=== PATIENT | male | born 1985 | race Caucasian/White ===

== ENCOUNTER 2023-07-06 22:20 | Inpatient (IN) | payer BC ==
[~2023-07-06] VITALS: Ht 177.8 cm; Wt 97.1 kg
[2023-07-06 21:45] VITALS: BP 114/66; PULSE 73; RESP 17; TEMP 98.9
[2023-07-06 22:34] VITALS: O2SAT 99
[2023-07-06] MEDS ORDERED: SODIUM CHLORIDE 0.9% 1,000 ML IV ONE (23:30)
[2023-07-06] MEDS ORDERED: MAGNESIUM 2 G PREMIX 50 ML IV ONE (23:30)
[2023-07-07] LABS: BASOPHILS % 0.4 % (0.0-2.0); HEMATOCRIT. 40.9 % (42.0-52.0); HEMOGLOBIN. 14.2 g/dL (14.0-18.0); MEAN CORPUSCULAR HEMOGLOBIN 30.2 pg (28.0-32.0); MEAN CORPUSCULAR HGB CONC 34.8 g/dL (31.0-37.0); MEAN CORPUSCULAR VOLUME 86.7 fL (80.0-94.0); MEAN PLATELET VOLUME 7.6 fl (7.4-10.4); NEUTROPHILS % 81.6 % (40.0-76.0); PLATELET 169 x1000/uL (130-400); RED BLOOD CELL COUNT 4.72 mill/uL (4.7-6.1); RED CELL DISTRIBUTION WIDTH 14.8 % (11.6-14.6); WHITE BLOOD COUNT 16.9 x1000/uL (4.5-11.0)
[2023-07-07] MEDS ORDERED: ONDANSETRON HCL 4MG/2ML INJ IV ONE
[2023-07-07] MEDS ORDERED: LORAZEPAM 1MG TABLET PO NR (01:00)
[2023-07-07] MEDS ORDERED: IBUPROFEN 600MG TABLET PO NR (01:00)
[2023-07-07] MEDS ORDERED: SODIUM CHLORIDE 0.9% 1,000 ML IV ONE (02:15)
[2023-07-07 06:00] LABS: CHLORIDE 92 mEq/L (98-107); INDEX HEMOLYSI 1 (1-3); INDEX ICTERIC 2 (1-4); INDEX LIPEMIC 1 (1-3); POTASSIUM 3.3 mEq/L (3.5-5.1); SODIUM 132 mEq/L (136-145)
[2023-07-07 06:06] LABS: ALANINE AMINOTRANSFERASE 82 IU/L (13-61); ASPARTATE AMINOTRANSFERASE 110 IU/L (15-37); BILIRUBIN TOTAL 2.4 mg/dL (0.1-1.0); CALCIUM 7.3 mg/dL (8.5-10.1); CARBON DIOXIDE 31 mEq/L (21-32); CREATININE 2.3 mg/dL (0.6-1.3); GLUCOSE 215 mg/dL (70-105); PROTEIN TOTAL 7.7 g/dL (6.0-8.3); UREA NITROGEN BLOOD 36 mg/dL (7-21)
[2023-07-07] MEDS ORDERED: DOCUSATE SODIUM 100MG CAPSULE PO PRN (07:45)
[2023-07-07] MEDS: CHLORDIAZEPOXIDE 25MG CAPSULE PO SCH ×3 (07:45→21:50)
[2023-07-07] MEDS ORDERED: ACETAMINOPHEN 325MG TABLET PO PRN (07:45)
[2023-07-07] MEDS ORDERED: KCL 20MEQ/100ML PREMIX 100 ML IV NR (08:00)
[2023-07-07] MEDS ORDERED: CEFTRIAXONE 1GM PREMIX 50 ML IV NR (08:00)
[2023-07-07] MEDS ORDERED: MVI, ADULT NO.1 10 ML, FOLIC ACID 1 MG, THIAMINE HCL 100 MG in SODIUM CHLORIDE 0.9% 1,0... IV ONE ×4 (09:00)
[2023-07-07] MEDS: ENOXAPARIN 40MG/0.4ML SYR SUBCUT SCH (09:00)
[2023-07-07] MEDS: HYDROCODONE/ACETAMINOPHEN 5/325MG TABLET PO PRN (11:52)
[2023-07-07 13:59] LABS: INDEX HEMOLYSI 2 (1-3)
[2023-07-07 14:50] LABS: CREATINE KINASE 123 IU/L (39-308)
[2023-07-07] MEDS ORDERED: NALOXONE HCL 0.4MG/ML VIAL IV PRN (17:15)
[2023-07-07] MEDS ORDERED: DEXTROSE 50% WATER 50ML SYRINGE IV PRN (17:15)
[2023-07-07] MEDS ORDERED: THIAMINE HCL 100MG TABLET PO SCH (17:15)
[2023-07-07] MEDS ORDERED: LORAZEPAM 0.5MG TABLET PO PRN (17:15)
[2023-07-07 17:30] VITALS: BP 106/52; PULSE 91; RESP 20; TEMP 98.3
[2023-07-07] MEDS: FOLIC ACID 1MG TABLET PO SCH (18:00)
[2023-07-07] MEDS: INSULIN LISPRO 100 UNITS/ML SUBCUT SCH ×2 (18:00→21:00)
[2023-07-07] MEDS: BLOOD SUGAR DIAGNOSTIC STRIP TEST SCH ×2 (18:10→21:49)
[2023-07-07] MEDS: SODIUM CHLORIDE 0.9% 1,000 ML IV SCH (18:30)
[2023-07-07] MEDS ORDERED: LORAZEPAM 2MG/ML CPJ IV PRN (19:00)
[2023-07-07 20:00] VITALS: BP 114/66; PULSE 73; RESP 17; TEMP 98.9
[2023-07-07 20:58] LABS: HEPATITIS B SURFACE ANTIGEN NEGATIVE
[2023-07-07 23:54] LABS: CLARITY URINE CLOUDY (CLEAR); COLOR URINE ORANGE (YELLOW); GLUCOSE URINE NEGATIVE (NEGATIVE); KETONES URINE NEGATIVE (NEGATIVE); LEUKOCYTE ESTERASE URINE 2+ (NEGATIVE); NITRITE URINE NEGATIVE (NEGATIVE); OCCULT BLOOD URINE NEGATIVE (NEGATIVE); PH URINE 5.5 (4.5-8.0); PROTEIN URINE 1+ (NEGATIVE); SPECIFIC GRAVITY URINE 1.015 (1.005-1.030)
[2023-07-08] VITALS (7 sets, daily range): BP systolic 106–140; BP diastolic 66–89; PULSE 79–96; RESP 17–20; TEMP 97–100.3
[2023-07-08 00:15] LABS: RBC URINE NONE SEEN /hpf (0-2); WBC URINE 15-25 /hpf (0-2)
[2023-07-08 00:16] LABS: BACTERIA URINE TRACE; SQUAMOUS EPITHELIAL CELL URINE 1+ /lpf (RARE/1+)
[2023-07-08] MEDS ORDERED: FERR325T6 MT (00:57)
[2023-07-08] MEDS ORDERED: LOSA50TA41 MT (00:57)
[2023-07-08] MEDS ORDERED: BUSP10TA3 PO (00:57)
[2023-07-08] MEDS ORDERED: GABA-532 PO (00:57)
[2023-07-08] MEDS ORDERED: ESCI20TA37 MT (00:57)
[2023-07-08] MEDS ORDERED: KEPP250 MT (00:57)
[2023-07-08] MEDS ORDERED: FURO40TA5 MT (00:57)
[2023-07-08] MEDS ORDERED: THIA100T88 MT (00:57)
[2023-07-08] MEDS ORDERED: CLON0.1T PO (00:57)
[2023-07-08] MEDS ORDERED: [UNRECOGNIZED DRUG - CODE] MT (00:57)
[2023-07-08] MEDS ORDERED: HYDR50TA55 MT (00:57)
[2023-07-08] MEDS ORDERED: PRAZ2CAP2 MT (00:57)
[2023-07-08] MEDS ORDERED: TIZA-204 PO (00:57)
[2023-07-08] MEDS ORDERED: *PATIENT'S OWN MEDICATION STORAGE XX SCH (01:00)
[2023-07-08 01:27] LABS: *BARBITURATES SCREEN URINE NEGATIVE (NEGATIVE); *BENZODIAZEPINES SCREEN URINE NEGATIVE (NEGATIVE); *COCAINE SCREEN URINE NEGATIVE (NEGATIVE); CANNABINOID URINE SCREEN NEGATIVE (NEGATIVE); ECSTASY MDMA SCREEN URINE NEGATIVE (NEGATIVE); METHADONE URINE SCREEN NEGATIVE (NEGATIVE); PHENCYCLIDINE URINE SCREEN NEGATIVE (NEGATIVE)
[2023-07-08 01:29] LABS: *AMPHETAMINES SCREEN URINE NEGATIVE (NEGATIVE); OPIATES URINE SCREEN PRESUMTIVE POSITIVE (NEGATIVE)
[2023-07-08] MEDS ORDERED: HALOPERIDOL LACTATE 5MG/ML VIAL IM PRN (02:00)
[2023-07-08] MEDS: LORAZEPAM 2MG/ML CPJ IV PRN ×3 (02:06→21:52)
[2023-07-08] MEDS: SODIUM CHLORIDE 0.9% 1,000 ML IV SCH ×3 (04:37→23:47)
[2023-07-08 06:34] LABS: BASOPHILS % 0.1 % (0.0-2.0); EOSINOPHILS % 0.5 % (0.0-5.0); HEMATOCRIT. 32.3 % (42.0-52.0); HEMOGLOBIN. 11.3 g/dL (14.0-18.0); LYMPHOCYTES % 20.5 % (20.0-50.0); MEAN CORPUSCULAR HEMOGLOBIN 30.8 pg (28.0-32.0); MEAN CORPUSCULAR HGB CONC 35.1 g/dL (31.0-37.0); MEAN CORPUSCULAR VOLUME 87.6 fL (80.0-94.0); MEAN PLATELET VOLUME 8.1 fl (7.4-10.4); NEUTROPHILS % 72.9 % (40.0-76.0); PLATELET 70 x1000/uL (130-400); RED BLOOD CELL COUNT 3.68 mill/uL (4.7-6.1); RED CELL DISTRIBUTION WIDTH 14.1 % (11.6-14.6)
[2023-07-08] MEDS: BLOOD SUGAR DIAGNOSTIC STRIP TEST SCH ×4 (06:52→20:02)
[2023-07-08] MEDS: INSULIN LISPRO 100 UNITS/ML SUBCUT SCH ×4 (06:53→20:02)
[2023-07-08] MEDS: OMEPRAZOLE 20MG CAPSULE EXTENDED RELEASE PO SCH ×2 (06:58→08:16)
[2023-07-08] MEDS: CHLORDIAZEPOXIDE 25MG CAPSULE PO SCH ×3 (06:58→21:52)
[2023-07-08] MEDS: FOLIC ACID 1MG TABLET PO SCH (08:16)
[2023-07-08] MEDS: CEFTRIAXONE 1,000 MG in DEXTROSE 5% WATER 50 ML IV SCH (08:16)
[2023-07-08] MEDS: THIAMINE HCL 100MG TABLET PO SCH (08:16)
[2023-07-08] MEDS: ENOXAPARIN 40MG/0.4ML SYR SUBCUT SCH (08:17)
[2023-07-08] MEDS: MORPHINE SULFATE 2 MG/ML CPJ (NOT FOR IM USE) IV PRN ×3 (08:19→23:21)
[2023-07-08 12:51] LABS: INR 1.3; PROTHROMBIN TIME 13.4 sec (9.6-11.0)
[2023-07-08 13:16] LABS: PHOSPHORUS 2.8 mg/dL (2.5-4.9)
[2023-07-08] MEDS: HYDROCODONE/ACETAMINOPHEN 5/325MG TABLET PO PRN (14:25)
[2023-07-08 17:21] LABS: POTASSIUM 2.8 mEq/L (3.5-5.1)
[2023-07-08 17:22] LABS: ALBUMIN 3.6 g/dL (3.4-5.0); BILIRUBIN TOTAL 1.9 mg/dL (0.1-1.0); CALCIUM 7.7 mg/dL (8.5-10.1); PHOSPHORUS 2.8 mg/dL (2.5-4.9); PROTEIN TOTAL 7.1 g/dL (6.0-8.3)
[2023-07-08 17:23] LABS: BILIRUBIN DIRECT 0.7 mg/dL (0.0-0.2)
[2023-07-08 17:34] LABS: HEMATOCRIT 32.3 % (42.0-52.0); HEMOGLOBIN 11.1 g/dL (14.0-18.0); MEAN CORPUSCULAR HGB CONC 34.3 g/dL (31.0-37.0); MEAN CORPUSCULAR VOLUME 87.6 fL (80.0-94.0); PLATELET 67 x1000/uL (130-400); RED BLOOD CELL COUNT 3.69 mill/uL (4.7-6.1); RED CELL DISTRIBUTION WIDTH 13.9 % (11.6-14.6); WHITE BLOOD COUNT 6.1 x1000/uL (4.5-11.0)
[2023-07-08] MEDS ORDERED: POTASSIUM CHLORIDE INJ 40 MEQ in DEXT 5% WATER 250 ML IV NR (19:00)
[2023-07-09] VITALS: BP 120/77; PULSE 82; RESP 18; TEMP 97.8
[2023-07-09] MEDS: LORAZEPAM 2MG/ML CPJ IV PRN ×2 (01:45→05:05)
[2023-07-09] MEDS: HYDROCODONE/ACETAMINOPHEN 5/325MG TABLET PO PRN ×2 (01:46→09:02)
[2023-07-09 04:00] VITALS: BP 139/80; PULSE 85; RESP 20; TEMP 98.6
[2023-07-09 04:57] LABS: BASOPHILS % 0.1 % (0.0-2.0); HEMATOCRIT. 30.8 % (42.0-52.0); HEMOGLOBIN. 10.7 g/dL (14.0-18.0); LYMPHOCYTES % 20.9 % (20.0-50.0); MEAN CORPUSCULAR HEMOGLOBIN 30.2 pg (28.0-32.0); MEAN CORPUSCULAR HGB CONC 34.8 g/dL (31.0-37.0); MEAN CORPUSCULAR VOLUME 86.8 fL (80.0-94.0); MEAN PLATELET VOLUME 8.2 fl (7.4-10.4); MONOCYTES % 6.9 % (2.0-8.0); NEUTROPHILS % 71.1 % (40.0-76.0); PLATELET 64 x1000/uL (130-400); RED BLOOD CELL COUNT 3.55 mill/uL (4.7-6.1)
[2023-07-09 05:13] LABS: INDEX HEMOLYSI 1 (1-3)
[2023-07-09 05:14] LABS: POTASSIUM 3.1 mEq/L (3.5-5.1)
[2023-07-09 05:25] LABS: ALBUMIN 3.3 g/dL (3.4-5.0); BILIRUBIN DIRECT 0.5 mg/dL (0.0-0.2); BILIRUBIN TOTAL 1.1 mg/dL (0.1-1.0); CALCIUM 7.6 mg/dL (8.5-10.1); CREATININE 1.4 mg/dL (0.6-1.3); PROTEIN TOTAL 6.8 g/dL (6.0-8.3)
[2023-07-09 06:04] VITALS: BP 139/80; PULSE 85; RESP 20
[2023-07-09] MEDS: MORPHINE SULFATE 2 MG/ML CPJ (NOT FOR IM USE) IV PRN (06:04)
[2023-07-09] MEDS: CHLORDIAZEPOXIDE 25MG CAPSULE PO SCH (06:04)
[2023-07-09] MEDS: BLOOD SUGAR DIAGNOSTIC STRIP TEST SCH (06:28)
[2023-07-09] MEDS: INSULIN LISPRO 100 UNITS/ML SUBCUT SCH (06:35)
[2023-07-09] MEDS ORDERED: POTASSIUM CHLORIDE 20MEQ TABLET SR PO NR (07:30)
[2023-07-09] MEDS: THIAMINE HCL 100MG TABLET PO SCH (09:02)
[2023-07-09] MEDS: FOLIC ACID 1MG TABLET PO SCH (09:02)
[2023-07-09] MEDS: CEFTRIAXONE 1,000 MG in DEXTROSE 5% WATER 50 ML IV SCH (09:05)
[2023-07-09 09:11] LABS: HIV SCREEN 4G Non Reactive (Non Reactive)
[2023-07-09 09:37] LABS: AMMONIA 109 uMol/L (<32)
[2023-07-09] MEDS ORDERED: L25 MT (10:27)
[2023-07-09 13:06] LABS: ANTI-NUCLEAR ANTIBODIES DIRECT Negative (Negative)
[2023-07-09 14:09] LABS: COMPLEMENT C3 111 mg/dL (82-167); COMPLEMENT C4 24 mg/dL (12-38)
[2023-07-09 21:22] LABS: HEPATITIS C VIR.AB 0.12 INDEXVAL (0.00-0.80)
[2023-07-09 21:23] LABS: HEPATITIS B CORE AB IGM NEGATIVE
[2023-07-09 22:07] LABS: HEPATITIS A AB IGM NEGATIVE (NEGATIVE)
== END 2023-07-09 11:29 | disposition left against medical advice (07) | DRG 439 ==
LOC: ER 22:42 → MICUSO 07-07 02:55 → 8WST 07-07 16:54
PROVIDERS: ADMIT Family Medicine Adult Medicine; ATTEND Family Medicine Adult Medicine
DX: K85.20 Alcohol induced acute pancreatitis without necrosis or infection (principal); E87.1 Hypo-osmolality and hyponatremia; N17.9 Acute kidney failure, unspecified; N39.0 Urinary tract infection, site not specified; K70.30 Alcoholic cirrhosis of liver without ascites; K44.9 Diaphragmatic hernia without obstruction or gangrene; F41.1 Generalized anxiety disorder; E87.6 Hypokalemia; N18.9 Chronic kidney disease, unspecified; Z53.29 Procedure and treatment not carried out because of patient's decision for other reasons; I12.9 Hypertensive chronic kidney disease with stage 1 through stage 4 chronic kidney disease, or unspecified chronic kidney disease; D64.9 Anemia, unspecified; D69.6 Thrombocytopenia, unspecified; E11.22 Type 2 diabetes mellitus with diabetic chronic kidney disease; E11.65 Type 2 diabetes mellitus with hyperglycemia; E78.1 Pure hyperglyceridemia; E83.51 Hypocalcemia; I25.10 Atherosclerotic heart disease of native coronary artery without angina pectoris; K70.10 Alcoholic hepatitis without ascites; K86.1 Other chronic pancreatitis; F32.A Depression, unspecified; F41.9 Anxiety disorder, unspecified; K21.9 Gastro-esophageal reflux disease without esophagitis; F17.210 Nicotine dependence, cigarettes, uncomplicated
CPT/HCPCS: 36415; 71045; 74176; 76705; 76770; 80048; 80053; 80061; 80076; 80305; 81003; 82140; 82248; 82330; 82378; 82550; 82962; 83036; 83735; 84100; 84145; 85025; 85027; 85044; 86038; 86160; 86301; 86705; 86709; 86803; 87077; 87340; 87389; 93970; 99285; J0696; J1630; J1650; J1815; J2060; J2270; J2405; J3411; J3475; J3480; J3490; J7030; J7060

== ENCOUNTER 2023-12-10 18:35 | Inpatient (IN) | payer BC ==
[~2023-12-10] VITALS: Ht 177.8 cm; Wt 99.8 kg
[~2023-12-10 18:35] MED LIST: BUSP10TA3 PO; CLON0.1T PO; ESCI20TA37 MT; FERR325T6 MT; FURO40TA5 MT; GABA-532 PO; HYDR50TA55 MT; KEPP250 MT; L25 MT; LOSA50TA41 MT; PRAZ2CAP2 MT; THIA100T88 MT; TIZA-204 PO; [UNRECOGNIZED DRUG - CODE] MT
[2023-12-10 19:44] LABS: BASOPHILS % 0.1 % (0.0-2.0); HEMATOCRIT. 34.1 % (42.0-52.0); HEMOGLOBIN. 11.8 g/dL (14.0-18.0); LYMPHOCYTES % 4.4 % (20.0-50.0); MEAN CORPUSCULAR HEMOGLOBIN 30.2 pg (28.0-32.0); MEAN CORPUSCULAR HGB CONC 34.7 g/dL (31.0-37.0); MEAN CORPUSCULAR VOLUME 86.9 fL (80.0-94.0); MEAN PLATELET VOLUME 6.8 fl (7.4-10.4); MONOCYTES % 5.8 % (2.0-8.0); NEUTROPHILS % 89.7 % (40.0-76.0); PLATELET 189 x1000/uL (130-400); RED BLOOD CELL COUNT 3.92 mill/uL (4.7-6.1); RED CELL DISTRIBUTION WIDTH 14.5 % (11.6-14.6); WHITE BLOOD COUNT 16.4 x1000/uL (4.5-11.0)
[2023-12-10 19:52] LABS: DIFFERENTIAL COMMENT 1
[2023-12-10 20:04] LABS: ALANINE AMINOTRANSFERASE 23 IU/L (10-49); ALBUMIN 3.8 g/dL (3.2-4.8); ASPARTATE AMINOTRANSFERASE 45 IU/L (<34); BILIRUBIN TOTAL 0.5 mg/dL (0.1-1.0); CALCIUM 7.7 mg/dL (8.7-10.4); CARBON DIOXIDE 14 mEq/L (21-32); CHLORIDE 85 mEq/L (98-107); CREATININE 3.6 mg/dL (0.6-1.3); ETHANOL BLOOD 373 mg/dL (<10); GLUCOSE 127 mg/dL (70-105); POTASSIUM 4.4 mEq/L (3.5-5.1); PROTEIN TOTAL 8.2 g/dL (6.0-8.3); SODIUM 122 mEq/L (136-145); UREA NITROGEN BLOOD 43 mg/dL (9-23)
[2023-12-10] MEDS: CHLORDIAZEPOXIDE 25MG CAPSULE PO ONE (20:15)
[2023-12-10] MEDS: FOLIC ACID 1 MG, THIAMINE HCL 100 MG, MVI, ADULT NO.1 10 ML in DEXTROSE 5% WATER 1,000 ML IV ONE (20:15)
[2023-12-10 20:51] LABS: CLARITY URINE TURBID (CLEAR); COLOR URINE DARK YELLOW (YELLOW); GLUCOSE URINE NEGATIVE (NEGATIVE); KETONES URINE NEGATIVE (NEGATIVE); LEUKOCYTE ESTERASE URINE TRACE (NEGATIVE); NITRITE URINE NEGATIVE (NEGATIVE); OCCULT BLOOD URINE 2+ (NEGATIVE); PH URINE 5.5 (4.5-8.0); PROTEIN URINE 4+ (NEGATIVE); SPECIFIC GRAVITY URINE 1.039 (1.005-1.030); UROBILINOGEN URINE 0.2 E.U./dL (0.2-1.0)
[2023-12-10 21:31] LABS: *AMPHETAMINES SCREEN URINE NEGATIVE (NEGATIVE); *BARBITURATES SCREEN URINE NEGATIVE (NEGATIVE); *BENZODIAZEPINES SCREEN URINE NEGATIVE (NEGATIVE); *COCAINE SCREEN URINE NEGATIVE (NEGATIVE); CANNABINOID URINE SCREEN NEGATIVE (NEGATIVE); ECSTASY MDMA SCREEN URINE NEGATIVE (NEGATIVE); METHADONE URINE SCREEN Neg (NEGATIVE); OPIATES URINE SCREEN NEGATIVE (NEGATIVE); PHENCYCLIDINE URINE SCREEN NEGATIVE (NEGATIVE)
[2023-12-10 21:45] LABS: RBC URINE 15-25 /hpf (0-2); SQUAMOUS EPITHELIAL CELL URINE 2+ /lpf (RARE/1+)
[2023-12-10 21:46] LABS: AMORPHOUS SEDIMENT URINE 2+ /lpf; BACTERIA URINE 2+; FINE GRANULAR CASTS URINE 0-5 /lpf; HYALINE CASTS URINE 0-5 /lpf
[2023-12-10] MEDS: SODIUM CHLORIDE 0.9% 1,000 ML IV ONE (21:51)
[2023-12-10] MEDS: ONDANSETRON HCL 4MG/2ML INJ IV ONE (22:42)
[2023-12-10] MEDS: CEFTRIAXONE 1GM PREMIX 50 ML IV ONE (22:42)
[2023-12-10 23:00] VITALS: BP 164/108; PULSE 101; RESP 19; TEMP 97.5
[2023-12-10] MEDS: BUSPIRONE HCL 10MG TABLET PO SCH (23:59)
[2023-12-11] MEDS: FOLIC ACID 1MG TABLET PO SCH (00:07)
[2023-12-11] MEDS: CLONIDINE 0.1MG TABLET PO PRN (00:07)
[2023-12-11] MEDS: HYDROXYZINE 25MG TABLET PO PRN (00:07)
[2023-12-11] MEDS: THIAMINE HCL 100MG TABLET PO SCH (00:07)
[2023-12-11] MEDS: MULTIVITAMINS,THER W-MINERALS TABLET PO SCH (00:07)
[2023-12-11] MEDS: LEVETIRACETAM 500MG TABLET PO SCH (00:20)
[2023-12-11] MEDS: CHLORDIAZEPOXIDE 25MG CAPSULE PO SCH (00:20)
[2023-12-11] MEDS: PRAZOSIN HCL 1MG CAPSULE PO SCH (00:20)
[2023-12-11] MEDS: METOPROLOL TARTRATE 50MG TABLET PO SCH (00:20)
[2023-12-11 01:03] VITALS: BP 164/108; PULSE 114; RESP 20; TEMP 97.5
[2023-12-11] MEDS: LORAZEPAM 2MG/ML INJ IV PRN (01:47)
[2023-12-11 04:00] VITALS: BP 146/88; PULSE 89; RESP 19; TEMP 97.9
[2023-12-11] MEDS: ONDANSETRON HCL 4MG/2ML INJ IV PRN (06:22)
[2023-12-11] MEDS ORDERED: BUPR1FIL3 SL (06:41)
[2023-12-11 08:00] VITALS: BP 139/83; PULSE 91; RESP 19; TEMP 97.9
[2023-12-11 08:09] LABS: ALANINE AMINOTRANSFERASE 24 IU/L (10-49); ASPARTATE AMINOTRANSFERASE 45 IU/L (<34); BILIRUBIN TOTAL 0.6 mg/dL (0.1-1.0); CALCIUM 7.9 mg/dL (8.7-10.4); CARBON DIOXIDE 21 mEq/L (21-32); CHLORIDE 83 mEq/L (98-107); CREATININE 3.2 mg/dL (0.6-1.3); GLUCOSE 136 mg/dL (70-105); POTASSIUM 4.1 mEq/L (3.5-5.1); PROTEIN TOTAL 8.3 g/dL (6.0-8.3); SODIUM 122 mEq/L (136-145); UREA NITROGEN BLOOD 53 mg/dL (9-23)
[2023-12-11] MEDS: PANTOPRAZOLE SODIUM 40 MG/VIAL IV SCH (08:34)
[2023-12-11] MEDS: CITALOPRAM HYDROBROMIDE 10MG TABLET PO SCH (08:35)
[2023-12-11 08:39] LABS: HEPATITIS B SURFACE ANTIGEN NEGATIVE (Negative); HEPATITIS C AB NON REACTIVE (Neg) (Negative)
[2023-12-11] MEDS: GABAPENTIN 300MG CAPSULE PO SCH (08:39)
[2023-12-11 08:43] LABS: HEMATOCRIT. 32.7 % (42.0-52.0); HEMOGLOBIN. 11.5 g/dL (14.0-18.0); MEAN CORPUSCULAR HEMOGLOBIN 30.2 pg (28.0-32.0); MEAN CORPUSCULAR HGB CONC 35.2 g/dL (31.0-37.0); MEAN CORPUSCULAR VOLUME 85.8 fL (80.0-94.0); MEAN PLATELET VOLUME 6.8 fl (7.4-10.4); PLATELET 158 x1000/uL (130-400); RED BLOOD CELL COUNT 3.81 mill/uL (4.7-6.1); RED CELL DISTRIBUTION WIDTH 14.4 % (11.6-14.6); WHITE BLOOD COUNT 13.8 x1000/uL (4.5-11.0)
[2023-12-11 08:44] LABS: DIFFERENTIAL COMMENT 1
[2023-12-11] MEDS ORDERED: MEDICATION NOT ON FORMULARY EA (Escitalopram Oxalate 1 TAB) MT SCH (09:00)
[2023-12-11 12:00] VITALS: BP 143/75; PULSE 87; RESP 18; TEMP 97.5
[2023-12-11] MEDS ORDERED: TIZANIDINE HCL 2MG TABLET PO PRN (12:00)
[2023-12-11 14:34] LABS: ANISOCYTOSIS 1+; PLATELET ESTIMATE NORMAL
[2023-12-11 16:00] VITALS: BP 155/91; PULSE 90; RESP 18; TEMP 97.7
[2023-12-11] MEDS: SODIUM CHLORIDE 0.9% 1,000 ML IV SCH (16:30)
[2023-12-11 20:00] VITALS: BP 125/78; PULSE 89; RESP 19; TEMP 98.1
[2023-12-11] MEDS ORDERED: DOXEPIN HCL MT SCH (21:00)
[2023-12-11] MEDS: DOXEPIN HCL 25MG CAPSULE PO SCH (21:07)
[2023-12-12] VITALS: BP 121/80; PULSE 78; RESP 19; TEMP 97.7
[2023-12-12 04:00] VITALS: BP 150/96; PULSE 85; RESP 19; TEMP 96.6
[2023-12-12 07:25] LABS: BASOPHILS % 0.2 % (0.0-2.0); EOSINOPHILS % 0.7 % (0.0-5.0); HEMATOCRIT. 31.2 % (42.0-52.0); HEMOGLOBIN. 11.2 g/dL (14.0-18.0); LYMPHOCYTES % 10.5 % (20.0-50.0); MEAN CORPUSCULAR HEMOGLOBIN 30.5 pg (28.0-32.0); MEAN CORPUSCULAR HGB CONC 35.8 g/dL (31.0-37.0); MEAN CORPUSCULAR VOLUME 85.4 fL (80.0-94.0); MONOCYTES % 9.8 % (2.0-8.0); RED BLOOD CELL COUNT 3.66 mill/uL (4.7-6.1); RED CELL DISTRIBUTION WIDTH 14.2 % (11.6-14.6)
[2023-12-12 07:37] LABS: CALCIUM 8.1 mg/dL (8.7-10.4); POTASSIUM 3.7 mEq/L (3.5-5.1)
[2023-12-12 07:56] LABS: DIFFERENTIAL COMMENT 1
[2023-12-12 07:57] LABS: CREATININE 1.8 mg/dL (0.6-1.3)
[2023-12-12 08:00] VITALS: BP 133/95; PULSE 88; RESP 19; TEMP 98.8
[2023-12-12 09:17] LABS: MEAN PLATELET VOLUME 8.1 fl (7.4-10.4); NEUTROPHILS % 78.8 % (40.0-76.0); PLATELET 109 x1000/uL (130-400)
[2023-12-12] MEDS ORDERED: CEPH500C2 MT (11:02)
[2023-12-12] MEDS ORDERED: CEPHALEXIN 250 MG/5 ML 100ML PO SCH (11:15)
[2023-12-12 12:00] VITALS: BP 155/103; PULSE 74; RESP 17; TEMP 99.3
[2023-12-12] MEDS: CEPHALEXIN 250MG CAPSULE PO SCH (13:20)
[2023-12-12 13:43] VITALS: BP 132/95; PULSE 88; TEMP 97.8; O2SAT 98
== END 2023-12-12 15:21 | disposition home or self-care (01) | DRG 896 ==
LOC: ER 19:54 → EDBEDREQTM 21:33 → EDBEDREQSVC 21:33 → EDBEDREQ 21:33 → 6EST 23:11
PROVIDERS: ADMIT Internal Medicine; ATTEND Internal Medicine
DX: F10.229 Alcohol dependence with intoxication, unspecified (principal); N17.0 Acute kidney failure with tubular necrosis; E87.1 Hypo-osmolality and hyponatremia; L03.211 Cellulitis of face; I10 Essential (primary) hypertension; D72.829 Elevated white blood cell count, unspecified; F41.9 Anxiety disorder, unspecified; Z79.899 Other long term (current) drug therapy
CPT/HCPCS: 36415; 80048; 80053; 80305; 80320; 81003; 85025; 86705; 87340; 99291; C9113; J0696; J2060; J2405; J3411; J3490; J7030; J7070; G0480

== ENCOUNTER 2024-05-07 10:50 | Emergency (ER) | payer BC, MEDICAID ==
[~2024-05-07] VITALS: Ht 177.8 cm; Wt 91.0 kg
[~2024-05-07 10:50] MED LIST changes: +BUPR1FIL3 SL; +CEPH500C2 MT; +CHLO25CA11 MT; -L25 MT
[2024-05-07 10:52] VITALS: O2SAT 94
[2024-05-07 11:12] LABS: BASOPHILS % 0.3 % (0.0-2.0); EOSINOPHILS % 1.1 % (0.0-5.0); HEMATOCRIT. 35.7 % (42.0-52.0); HEMOGLOBIN. 11.9 g/dL (14.0-18.0); LYMPHOCYTES % 40.3 % (20.0-50.0); MEAN CORPUSCULAR HEMOGLOBIN 29.8 pg (28.0-32.0); MEAN CORPUSCULAR HGB CONC 33.4 g/dL (31.0-37.0); MEAN CORPUSCULAR VOLUME 89.2 fL (80.0-94.0); MONOCYTES % 3.9 % (2.0-8.0); NEUTROPHILS % 54.4 % (40.0-76.0); PLATELET 142 x1000/uL (130-400); WHITE BLOOD COUNT 5.4 x1000/uL (4.5-11.0)
[2024-05-07 11:14] LABS: CHLORIDE 102 mEq/L (98-107); POTASSIUM 3.8 mEq/L (3.5-5.1); SODIUM 138 mEq/L (136-145)
[2024-05-07 11:15] LABS: CALCIUM 8.8 mg/dL (8.7-10.4); CARBON DIOXIDE 24 mEq/L (21-32)
[2024-05-07 11:17] LABS: INR 1.2; PROTHROMBIN TIME 13.2 sec (9.6-11.0)
[2024-05-07 11:20] LABS: CREATININE 1.7 mg/dL (0.6-1.3); GLUCOSE 267 mg/dL (70-105); UREA NITROGEN BLOOD 22 mg/dL (9-23)
[2024-05-07 11:24] LABS: TROPONIN I HIGH SENSITIVITY < 4 ng/L (3.0-53)
[2024-05-07 11:26] LABS: LACTIC ACID 3.8 mmol/L (0.4-2.0)
[2024-05-07 11:30] LABS: ETHANOL BLOOD 327 mg/dL (<10)
[2024-05-07] MEDS: SODIUM CHLORIDE 0.9% 1,000 ML IV ONE ×2 (12:08→12:15)
[2024-05-07 16:54] VITALS: BP 113/69; PULSE 87; RESP 18; TEMP 98.3
== END 2024-05-07 16:25 | disposition admitted as inpatient to this hospital (09) ==
LOC: ER 10:50 → CANBEDREQ 12:51 → ER 16:25
DX: I95.9 Hypotension, unspecified (principal); F10.229 Alcohol dependence with intoxication, unspecified; F41.9 Anxiety disorder, unspecified; I10 Essential (primary) hypertension; F14.10 Cocaine abuse, uncomplicated; F15.10 Other stimulant abuse, uncomplicated; Z79.899 Other long term (current) drug therapy; Y90.8 Blood alcohol level of 240 mg/100 ml or more
CPT/HCPCS: 80048; 80320; 83880; 83605; 83690; 85025; 85610; 84484; 36415; 71045; 93005; 96360; 99285; J7030; Z7610; G0480

== ENCOUNTER 2024-11-21 17:45 | Emergency (ER) | payer MEDICAID ==
[~2024-11-21] VITALS: Ht 172.7 cm; Wt 104.0 kg
[~2024-11-21 17:45] MED LIST changes: +GABA-1180 PO; -GABA-532 PO
[2024-11-21 17:49] VITALS: O2SAT 99
[2024-11-21 17:58] VITALS: BP 130/83; PULSE 91; RESP 18; TEMP 98.3; O2SAT 98
== END 2024-11-21 19:50 | disposition left against medical advice (07) ==
LOC: ER 18:16
DX: F10.239 Alcohol dependence with withdrawal, unspecified (principal); Z53.21 Procedure and treatment not carried out due to patient leaving prior to being seen by health care provider

== ENCOUNTER 2025-01-24 15:06 | Emergency (ER) | payer MEDICAID ==
[~2025-01-24] VITALS: Ht 167.6 cm; Wt 91.0 kg
[2025-01-24 15:10] VITALS: BP 153/97; PULSE 105; RESP 18; TEMP 36.5; O2SAT 98
[2025-01-24] MEDS ORDERED: CHLO25CA10 MT (15:45)
[2025-01-24] MEDS ORDERED: CHLORDIAZEPOXIDE 25MG CAPSULE PO ONE (15:45)
== END 2025-01-24 16:55 | disposition home or self-care (01) ==
LOC: ER 15:06
DX: F10.239 Alcohol dependence with withdrawal, unspecified (principal); F14.10 Cocaine abuse, uncomplicated; F15.10 Other stimulant abuse, uncomplicated; F11.10 Opioid abuse, uncomplicated; F13.20 Sedative, hypnotic or anxiolytic dependence, uncomplicated; I10 Essential (primary) hypertension; Z79.899 Other long term (current) drug therapy; Y90.9 Presence of alcohol in blood, level not specified
CPT/HCPCS: 99283